=== PATIENT | female | born 1940 | race Caucasian/White ===

== ENCOUNTER → 2017-01-22 | Outpatient (CLI) | payer MEDICARE ==
[~2017-01-22] MED LIST: ACETAMINOPHEN PO; CARVEDILOL25 MG PO; COMBIGAN EYE DRO5 ML OS; COUMADIN; COUMADIN PO; DIOVAN HCT 160/1 TAB PO; GLUCOPHAGE500 MG PO; INDERAL LA PO; KCL PO; LANOXIN PO; LASIX20 MG PO; MICRO-K; PILOCARPINE HCL PO; PREDNISONE PO; PREDNISONE5 MG PO; PRINIVIL20 M1 PO; PROPRANOLOL
[2017-01-22 11:49] LABS: BASOPHIL% 0.5 % (0-2.5); EOSINOPHIL# 0.5 X10e3 (0-0.7); EOSINOPHIL% 7.1 % (0.0-7.0); HEMOGLOBIN 12.6 gm/dL (12.0-16.0); LYMPHOCYTE# 1.4 X10e3 (1.0-3.5); LYMPHOCYTE% 20.9 % (17.0-45.0); MEAN CELL VOLUME 84.5 FL (83-96); MEAN CORPUSCULAR HEMOGLOBIN 27.2 PG (28-34); MEAN CORPUSCULAR HGB CONC 32.2 g/dL (30-36); MEAN PLATELET VOLUME 8.7 FL (6.5-11.5); MONOCYTE# 0.6 X10e3 (0-1.0); MONOCYTE% 8.8 % (3.0-12.0); NEUTROPHIL# 4.3 X10e3 (1.5-7.1); NEUTROPHIL% 62.7 % (40-75); PLATELET COUNT 207 X10e3 (140-420); RED BLOOD COUNT 4.61 X10e (3.90-5.30); RED CELL DISTRIBUTION WIDTH 14.6 % (11.0-15.5); WHITE BLOOD COUNT 6.8 X10e3 (4.0-10.5)
[2017-01-22 11:50] LABS: DIFF IND NO
[2017-01-25 00:55] LABS: IMMUNOGLOBULIN A 262 mg/dL (81-463); IMMUNOGLOBULIN E 17 kU/L (<=114); IMMUNOGLOBULIN G 1099 mg/dL (694-1618); IMMUNOGLOBULIN M 41 mg/dL (48-271)
== END | disposition home or self-care (01) ==
LOC: CLAB 10:59
PROVIDERS: Allergy & Immunology
DX: Z23 Encounter for immunization (principal); J30.1 Allergic rhinitis due to pollen; J32.9 Chronic sinusitis, unspecified; J30.89 Other allergic rhinitis
CPT/HCPCS: 36415; 82784; 82785; 83520; 85025; 86162

== ENCOUNTER → 2017-01-29 | Day surgery (SDC) | payer MEDICARE ==
--- NOTE | ~2017-01-29 | OR ---
Unit #: [id number] #: [id number] Patient: BREA TRINIDAD [id number] [facility]. [address] [place], [place] [address] [id number] O MR#: [id number] NAME: BREA TRINIDAD ROOM: Date of Procedure: 01/29/2017 Admission Date: 01/29/2017 Surgeon: Zach Gupta Jr., M.D. : 1940 Attending Physician: Zach Gupta Jr., M.D. Primary Care Physician: Wilver Sarabia M.D. OPERATIVE REPORT INDICATIONS FOR PROCEDURE The patient is a 76-year-old white female, who recently was referred to the office complaining of a tender painful lipomatous masses of both forearms. She has lipomatosis with multiple other lipomas, but these seemed to be the most symptomatic. She is brought in this time at her request for removal of these under local anesthesia. PREOPERATIVE DIAGNOSIS Lipomatous masses of each forearm. POSTOPERATIVE DIAGNOSES Lipomatous masses of each forearm noting approximately 3 cm or so lipoma of the right arm posteriorly just below the elbow and approximately a 2 cm lipomatous mass of the left anterior forearm. ANESTHESIA 1% Xylocaine with epinephrine locally. PROCEDURE PERFORMED Excisional of lipomatous masses, both arms. DESCRIPTION OF PROCEDURE The patient was positioned in supine position with both arms crossed across her chest and was prepped and draped in routine fashion for removal of her lipomatous masses as described above. Both areas were locally anesthetized with 1% Xylocaine with epinephrine locally and a transverse incision was made over each lipomatous mass approximately 2 inches in length and carried down through the dermis through the subcutaneous tissue, where there was a lipomatous mass present on each side. These masses were extended down towards the deeper subcutaneous tissue. After they were completely removed with Metzenbaum scissors, they were sent to pathology. Hemostasis was achieved with Bovie cautery. The deeper tissue in both wounds was approximated with interrupted 3-0 Vicryl sutures. Skin edges approximated with stainless-steel skin clips and skin stapling device. Sterile dressings were applied externally. Estimated blood loss minimal, less than 20 mL. The patient received no fluids during the procedure. Sponges and instrument counts were correct x3. No drains were used. No complications. The patient was discharged in satisfactory condition. Dictated by... Unit #: [id number] #: [id number] Patient: BREA TRINIDAD Zach Gupta Jr., MKendrick EVANS/chapo TD: 01/30/2017 00:44 JOB #: [id number] OPERATIVE REPORT Page 1 of 1 X Zach Gupta MD X PROCEDURE OPERATIVE NOTE
[2017-01-29 10:13] LABS: INR 1.4; PROTHROMBIN TIME (PATIENT) 14.7 SECONDS (9.6-11.5)
== END | disposition home or self-care (01) ==
LOC: CSUR 08:56
PROVIDERS: Surgery
DX: D17.21 Benign lipomatous neoplasm of skin and subcutaneous tissue of right arm (principal); D17.22 Benign lipomatous neoplasm of skin and subcutaneous tissue of left arm; M79.89 Other specified soft tissue disorders; E87.6 Hypokalemia; M19.90 Unspecified osteoarthritis, unspecified site; K21.9 Gastro-esophageal reflux disease without esophagitis; Z85.118 Personal history of other malignant neoplasm of bronchus and lung; Z88.0 Allergy status to penicillin; Z88.2 Allergy status to sulfonamides; Z88.8 Allergy status to other drugs, medicaments and biological substances; Z90.710 Acquired absence of both cervix and uterus; Z95.0 Presence of cardiac pacemaker; Z98.41 Cataract extraction status, right eye; Z98.42 Cataract extraction status, left eye; Z98.890 Other specified postprocedural states
CPT/HCPCS: 82947; 85610; 88304